=== PATIENT | male | born 1935 | race Caucasian/White ===

== ENCOUNTER 2025-01-30 19:23 | Emergency (ER) | payer OTHER, MEDICARE, MEDICAID, SELFPAY ==
--- NOTE | 2025-01-30 19:40 | PD.EDAMS ---
Altered Mental Status RME/HPI General Chief Complaint: Altered Mental Status Stated Complaint: AMS Time Seen by Provider: 01/30/25 19:34 Arrival date/time: 01/30/25 19:23 RME / HPI RME / HPI narrative: Dr. Andrews?s Main ED Evaluation: 89yo male with a history of severe dementia, anxiety, scabies BIB[facility] from [facility] presents to the ED for a chief complaint of altered mental status. Per EMS, SNF staff noted the patient to be more altered than normal , reporting the patient normally knows his name. EMS notes the patient to be shaky. Full ROS is unobtainable due to the patient's history of dementia. Of note, patient is a DNR. Related Data Allergies Allergy/AdvReac Type Severity Reaction Status Date / Time Penicillins Allergy Verified 01/30/25 20:11 Review of Systems Review of Systems ROS Unobtainable: unobtainable due to mental status ED Exam Narrative Physical exam: Generally patient is alert agitated elderly appearing male who is cachectic, head is normocephalic atraumatic, eyes pupils equal round and reactive to light, oropharynx is dry, heart regular rate and rhythm, lungs clear to auscultation equal bilaterally, abdomen is soft nondistended mild diffuse tenderness without rebound, skin shows excoriations to bilateral lower extremities, extremities show no edema, neurologic exam shows the patient to be minimally verbal and appears confused without focal motor deficit Course Course Course Narrative: CXR is ordered for determining the etiology of AMS. Quality Measures none Orders Category Date Time Status CT Screening NOW Care 01/30/25 19:44 Active EKG (ED ONLY) *Do not use* NOW Care 01/30/25 19:[address] abdomen pelvis w con Stat Exams 01/30/25 19:[address] head/brain wo con Stat Exams 01/30/25 19:44 Completed EKG (ED Only) Stat Exams 01/30/25 19:44 Draft XR chest 1V portable Stat Exams 01/30/25 19:44 Completed Ammonia Stat Lab 01/30/25 20:00 Completed BMP [Basic Metabolic Panel] Stat Lab 01/30/25 23:49 Completed Blood Culture (Lab) Stat Lab 01/30/25 20:00 Received CBC Stat Lab 01/30/25 20:00 Completed CMP [Comprehensive Metabolic Panel] Stat Lab 01/30/25 20:00 Completed Lactic Acid [Lactate (Lactic Acid)] Stat Lab 01/30/25 20:00 Completed Lactic Acid [Lactate (Lactic Acid)] Stat Lab 01/30/25 23:49 Results Lipase Stat Lab 01/30/25 20:00 Completed Magnesium Stat Lab 01/30/25 20:00 Completed TSH [Thyroid Stimulating Hormone] Stat Lab 01/30/25 20:00 Completed Troponin I Stat Lab 01/30/25 20:00 Completed UA [Urinalysis] Stat Lab 01/30/25 19:55 Completed Diazepam Inj [Valium Inj] Med 01/30/25 19:45 Discontinued 10 mg IVP X1 ONE Ringers Lactated 1000 ml [Lactated Ringers] 1,000 ml Med 01/30/25 21:03 Discontinued IV 999 mls/hr Ringers Lactated 1000 ml [Lactated Ringers] 1,000 ml Med 01/30/25 21:56 Discontinued IV 999 mls/hr Vital Signs Vital signs: Vital Signs Temperature 98.8 F 01/30/25 20:02 Pulse Rate 68 01/30/25 20:02 Respiratory Rate 19 01/30/25 20:02 Blood Pressure 105/71 01/30/25 20:02 Pulse Oximetry (%) 97 01/30/25 20:02 Oxygen Delivery Method Room Air 01/30/25 20:02 Altered Mental Status MDM Narrative MDM Narrative:: Scribe Attestation: 01/30/25 - Jessica Bennett am scribing for and in the presence of Dr. Andrews. Head CT was negative. CT scan done of the abdomen and pelvis with IV contrast showed no acute abnormality. By laboratory criteria the patient has hypernatremic dehydration. Patient was hydrated with a liter of normal saline. Original potassium was 5.8 and repeat after hydration it was 4.2. Original lactic acid was 4.6 and after hydration it was 2.2. Urine is not infected. Patient has a history of dementia as well as unspecified encephalopathy. I believe the confusion is to be a function of the dementia. He did receive Valium 10 mg IV which helped calm the patient. Patient is stable for discharge back to his [facility] facility. Cardiac workup was unremarkable. EKG did show normal sinus rhythm at rate of 67 with a right bundle branch block. No ectopy or ischemic change. Patient data External records reviewed:: [facility] previous records (Per chart review, patient has no previous ED visits or admissions to this facility.) and [facility] records Clinical information provided by:: EMS Social determinants that could affect healthcare access:: housing (SNF resident) Patient has the following chronic illnesses:: severe dementia, anxiety How is presenting disease/condition affected by chronic disease/condition?: exacerbated by Evaluation data The following diagnostics were reviewed and interpreted by me:: lab results, radiology exam(s) and EKG tracing(s) Lab and/or radiology exams considered but not ordered:: none Interpretation Summary: [facility] Report Signed Patient: LUI CASE. Record#: [id number] Birthdate: 1935 Age/Sex: 89 / M Location: [facility] Attending Dr: Ordering Physician: Paulo Andrews DO Date of Service: 01/30/25 Procedure(s): XR chest 1V portable Accession Number(s): [id number] cc: Leander Jj MD; Paulo Andrews DO~ EXAMINATION: AP chest single view TECHNIQUE: AP portable supine chest single view Date and time: January 30, 2025, 1955 hours INDICATIONS: Onset chest pain today FINDINGS: Reduced inspiratory effort Normal heart size 4 mm pulmonary nodule left upper lobe No lobar pneumonia or pulmonary edema IMPRESSION: Poor inspiratory effort chest x-ray In the absence of prior chest films, recommend 3-month follow-up PA chest to document stability of small pulmonary nodule left upper lobe Dictated By: Leander Jj MD Signed By: <Electronically signed by Leander Jj MD in > 01/30/252030 [facility] Report Signed Patient: LUI CASE. Record#: [id number] Birthdate: 1935 Age/Sex: 89 / M Location: [facility] Attending Dr: Ordering Physician: Paulo Andrwes DO Date of Service: 01/30/25 Procedure(s): CT head/brain wo con Accession Number(s): [id number] cc: Leander Jj MD; NO PRIMARY/FAMILY,PHYSICIAN; Paulo Andrews DO~ Examination: CT brain head without contrast. 2-D sagittal coronal reconstructions Date and time of exam: January 30, 2025, 2130 hours INDICATIONS: Altered mental status today CTDI: vol (mGy): 51.1 DLP: (mGycm): 1170 Technique: Multiple CT axial sections of the brain have been obtained, 5 mm slice thickness. Contrast has not been administered. 2-D sagittal, coronal reconstructions have been obtained Low dose protocols were performed. One or more of the following dose reduction techniques were used; automated exposure control, adjustment of the mA and/or KV according to patient size, use of iterative reconstruction technique. Findings: No significant ventricular enlargement. Intra-axial or extra-axial hemorrhage density is not seen. No mass effect or midline shift Basal cisterns are not remarkable. Fourth ventricle is midline. Cranial vault intact. Impression: Negative for acute hemorrhage, mass effect or midline shift Advise clinical correlation and follow-up accordingly Dictated By: Leander Jj MD Signed By: <Electronically signed by Leander Jj MD in [place]> 01/30/25 2315 [facility] Report Signed Patient: LUI CASE Record#: [id number] Birthdate: 1935 Age/Sex: 89 / M Location: [facility] Attending Dr: Ordering Physician: Paulo Andrews DO Date of Service: 01/30/25 Procedure(s): CT abdomen pelvis w con Accession Number(s): [id number] cc: Leander Jj MD; NO PRIMARY/FAMILY,PHYSICIAN; Paulo Andrews DO~ Examination: CT abdomen with intravenous contrast CT pelvis with intravenous contrast 2-D coronal reconstructions 2-D sagittal reconstructions Date and time of exam: January 30, 2025, 2132 hours INDICATIONS: Onset abdominal pain today. CTDI: vol (mGy) 11.31 DLP: (mGycm) 713 Technique: Multiple axial sections of the abdomen and pelvis have been obtained. 64 slice high-resolution scanner used. 3 mm axial sections have been obtained, post intravenous injection 30 cc [id number]-300 2-D sagittal, coronal reconstructions obtained. Low dose protocols were performed. One or more of the following dose reduction techniques were used; automated exposure control, adjustment of the mA and/or KV according to patient size, use of iterative reconstruction technique. Findings: Small liver cysts Suspicious for tiny gallstones Spleen is not enlarged No pancreatic or adrenal mass Moderate renal scar formation, left parapelvic cysts No renal or ureteral calculi, no hydronephrosis Aorta normal size No bowel obstruction Normal appendix No diverticulitis Urinary bladder contracted around a Dillard catheter Moderate prostatomegaly Severe osteopenia IMPRESSION: Recommend gallbladder sonography to exclude tiny gallstones Moderate renal scar formation, left parapelvic cyst, no hydronephrosis or ureteral calculi Normal appendix No bowel obstruction No diverticulitis Moderate prostatomegaly Dictated By: Leander Jj MD Signed By: <Electronically signed by Leander Jj MD in OV> 01/30/25 2314 Medications / Prescriptions Medications or Prescriptions considered but not ordered:: none Medication administrations:: Medication Administration History Discontinued Medications Diazepam (Diazepam Inj 5 Mg/Ml Vial 2 Ml) 10 mg IVP X1 ONE Stop: 01/30/25 19:46 Last Admin: 01/30/25 21:19 Dose: 10 mg Documented By: MAGDALENE Lactated Ringer's (Lactated Ringers) 1,000 mls @ 999 mls/hr IV .Q1H1M ONE Stop: 01/30/25 22:03 Last Infusion: 01/31/25 00:28 Dose: Infused Documented By: Admin: 01/30/25 22:36 Dose: 999 mls/hr Documented By: MAGDALENE Lactated Ringer's (Lactated Ringers) 1,000 mls @ 999 mls/hr IV .Q1H1M ONE Stop: 01/30/25 22:56 Last Infusion: 01/31/25 00:28 Dose: Infused Documented By: Admin: 01/30/25 22:38 Dose: 999 mls/hr Documented By: MAGDALENE see above Consultations Consultation(s) initiated? (list below): No Diagnosis Differential diagnosis altered mental status: other (See MDM) Most likely diagnosis given after review of the tests above:: see clinical impression below Admission Indicated Admission indicated?: not indicated Admission Request Was there a request for admission?: No Disposition Plan Disposition Plan: Discharge Discharge Attestation Discharge Attestation: The patient and all family members were given an opportunity to ask questions and understood the discharge instructions. Discharge instructions specifically effects, indications for sooner follow up or return to the emergency department, and the expected course of current diagnosis. Patient condition: Stable Discharge Plan Plan Patient Disposition: Xfer Skilled Nsg Fac (SNF) Prescriptions/Referrals Referrals: No Primary/Family,Physician [Primary Care Provider] - In 1 week Problem List Clinical Impression: Dehydration with hypernatremia, Dementia Patient/Caregiver Discharge Instructions Education Materials: Caring for End-Stage Dementia, Dehydration, Hypernatremia Dc Additional Instructions: Patient is stable for discharge back to [facility] facility. Encourage p.o. hydration. Print Language: Argentine Stand Alone Forms: Joanie Award Info., Patient Portal Info Letter
--- NOTE | 2025-01-30 19:44 | EKG_ITS ---
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
--- NOTE | 2025-01-30 19:44 | XR_ITS ---
Examination: CT brain head without contrast. 2-D sagittal coronal reconstructions Date and time of exam: January 30, 2025, 2131 hours INDICATIONS: Altered mental status today CTDI: vol (mGy): 51.1 DLP: (mGycm): 1170 Technique: Multiple CT axial sections of the brain have been obtained, 5 mm slice thickness. Contrast has not been administered. 2-D sagittal, coronal reconstructions have been obtained Low dose protocols were performed. One or more of the following dose reduction techniques were used; automated exposure control, adjustment of the mA and/or KV according to patient size, use of iterative reconstruction technique. Findings: No significant ventricular enlargement. Intra-axial or extra-axial hemorrhage density is not seen. No mass effect or midline shift Basal cisterns are not remarkable. Fourth ventricle is midline. Cranial vault intact. Impression: Negative for acute hemorrhage, mass effect or midline shift Advise clinical correlation and follow-up accordingly
--- NOTE | 2025-01-30 19:44 | XR_ITS ---
Examination: CT abdomen with intravenous contrast CT pelvis with intravenous contrast 2-D coronal reconstructions 2-D sagittal reconstructions Date and time of exam: January 30, 2025, 2133 hours INDICATIONS: Onset abdominal pain today. CTDI: vol (mGy) 11.31 DLP: (mGycm) 713 Technique: Multiple axial sections of the abdomen and pelvis have been obtained. 64 slice high-resolution scanner used. 3 mm axial sections have been obtained, post intravenous injection 30 cc Isovue-300 2-D sagittal, coronal reconstructions obtained. Low dose protocols were performed. One or more of the following dose reduction techniques were used; automated exposure control, adjustment of the mA and/or KV according to patient size, use of iterative reconstruction technique. Findings: Small liver cysts Suspicious for tiny gallstones Spleen is not enlarged No pancreatic or adrenal mass Moderate renal scar formation, left parapelvic cysts No renal or ureteral calculi, no hydronephrosis Aorta normal size No bowel obstruction Normal appendix No diverticulitis Urinary bladder contracted around a Dillard catheter Moderate prostatomegaly Severe osteopenia IMPRESSION: Recommend gallbladder sonography to exclude tiny gallstones Moderate renal scar formation, left parapelvic cyst, no hydronephrosis or ureteral calculi Normal appendix No bowel obstruction No diverticulitis Moderate prostatomegaly
--- NOTE | 2025-01-30 19:44 | XR_ITS ---
EXAMINATION: AP chest single view TECHNIQUE: AP portable supine chest single view Date and time: January 30, 2025, 195 hours INDICATIONS: Onset chest pain today FINDINGS: Reduced inspiratory effort Normal heart size 4 mm pulmonary nodule left upper lobe No lobar pneumonia or pulmonary edema IMPRESSION: Poor inspiratory effort chest x-ray In the absence of prior chest films, recommend 3-month follow-up PA chest to document stability of small pulmonary nodule left upper lobe
[2025-01-30 20:00] LABS: Collection Type, Urine Voided
[2025-01-30 20:02] VITALS: BP 105/71; PULSE 68; RESP 19; TEMP 37.1; O2SAT 97; BMI 19.0
[2025-01-30 20:04] LABS: Bilirubin,Urine Negative (Negative); Blood,Urine Negative (Negative); Clarity,Urine Clear (Clear/Hazy); Color,Urine Yellow (Lt Yel-Yel); Glucose, Urine Negative (Negative); Hyaline Casts,Urine < 1 /hpf (0-1); Ketones,Urine Negative (Negative); Leukocyte Esterase,Urine Negative (Negative); Nitrite,Urine Negative (Negative); PH,Urine 5.5 (5.0-7.0); Protein,Urine Trace (Neg - Trace); RBC,Urine 3 /hpf (0-3); Specific Gravity,Urine 1.030 (1.001-1.035); Squamous Epithelial Cell,Urine < 1 /hpf (0-5); Urobilinogen,Urine Negative mg/dL (0.0-1.0); WBC,Urine 1 /hpf (0-5)
[2025-01-30 20:25] LABS: Basophils # (Auto) 0.0 Thou/mm3 (0.0-0.2); Basophils % (Auto) 0 % (0-2.5); Eosinophils # (Auto) 0.0 Thou/mm3 (0.0-0.5); Eosinophils % (Auto) 0 % (0-10); Hematocrit 42.4 % (41.0-53.0); Hemoglobin 13.7 g/dL (13.5-16.0); Immature Granulocytes Auto 0.03 Thou/mm3 (0.00-0.00); Lymphocytes # (Auto) 2.8 Thou/mm3 (1.0-4.8); Lymphocytes % (Auto) 25 % (10-50); Mean Corpuscular HGB Conc 32.3 g/dl (31.0-37.0); Mean Corpuscular Hemoglobin 29.0 pg (25.0-35.0); Mean Corpuscular Volume 90 fL (80-100); Monocytes # (Auto) 0.3 Thou/mm3 (0.0-0.8); Monocytes % (Auto) 2 % (0-12); Neutrophils # (Auto) 8.1 Thou/mm3 (1.8-7.7); Neutrophils % (Auto) 72 % (37-80); Nucleated Red Blood Cell # 0.00 Thou/mm3 (0.00-0.00); Nucleated Red Blood Cell % 0 /100 WBC (0); Platelet Count 301 Thou/mm3 (140-440); RDW Standard Deviation 46.2 fL (35.1-43.9); Red Blood Count 4.73 Miln/mm3 (4.50-5.90); White Blood Count 11.2 Thou/mm3 (3.8-10.6)
[2025-01-30 20:29] LABS: Lactate (Lactic Acid) 4.6 mMol/L (0.4-2.0)
[2025-01-30 20:42] LABS: Ammonia 18 uMol/L (11-32)
[2025-01-30 21:06] LABS: Alanine Aminotransferase 11 U/L (10-49); Albumin, Serum 4.2 gm/dL (3.4-4.8); Albumin/Globulin Ratio 1.2 (1.2-2.2); Alkaline Phosphatase 108 U/L (46-116); Anion Gap 12 (7-16); Aspartate Amino Transferase 28 U/L (0-34); BUN/Creatinine Ratio 22 Ratio (12-20); Bilirubin,Total 0.4 mg/dL (0.3-1.2); Blood Urea Nitrogen 39 mg/dL (9-23); Calcium 9.5 mg/dL (8.3-10.6); Calcium (Corrected) 9.5 mg/dL (8.5-10.1); Carbon Dioxide 22.0 mMol/L (20.0-31.0); Chloride 116 mMol/L (98-107); Creatinine (Component) 1.8 mg/dL (0.6-1.3); Estimated Creatinine Clearance 26.0 mL/min (>60); Globulin 3.4 gm/dL (2.3-3.5); Glucose 113 mg/dL (74-106); Lipase 39 U/L (12-53); Magnesium 2.6 mg/dL (1.6-2.6); Osmolality,Calculated 308 (275-295); Potassium 5.8 mMol/L (3.4-5.1); Sodium 150 mMol/L (136-145); Thyroid Stimulating Hormone 0.74 uIU/mL (0.55-4.78); Total Protein 7.6 gm/dL (5.7-8.2); Troponin I < 0.002 ng/mL (0.0-0.045); eGFR 36 See Note
[2025-01-30] MEDS: DIAZEPAM INJ 5 MG/ML VIAL 2 ML 10 MG IVP (21:19)
[2025-01-30 22:00] VITALS: BP 123/73; PULSE 82; RESP 16; TEMP 37.1; O2SAT 99
[2025-01-30] MEDS: RINGERS LACTATED 1000 ML 1,000 ML 999 ML IV ×2 (22:36→22:38)
[2025-01-30 23:19] LABS: Reflex Lactate? Y
[2025-01-31] VITALS: BP 126/72; PULSE 82; RESP 17; O2SAT 99
[2025-01-31 00:30] LABS: Lactate (Lactic Acid) 2.2 mMol/L (0.4-2.0)
[2025-01-31 00:54] LABS: Anion Gap 11 (7-16); BUN/Creatinine Ratio 21 Ratio (12-20); Blood Urea Nitrogen 36 mg/dL (9-23); Calcium 8.7 mg/dL (8.3-10.6); Carbon Dioxide 23.3 mMol/L (20.0-31.0); Chloride 116 mMol/L (98-107); Creatinine (Component) 1.7 mg/dL (0.6-1.3); Estimated Creatinine Clearance 27.5 mL/min (>60); Glucose 101 mg/dL (74-106); Osmolality,Calculated 306 (275-295); Potassium 4.2 mMol/L (3.4-5.1); Sodium 150 mMol/L (136-145); eGFR 39 See Note
[2025-01-31 02:12] VITALS: BP 126/71; PULSE 72; RESP 17; TEMP 36.9; O2SAT 99
[2025-01-31 03:29] LABS: Reflex Lactate? Y
== END 2025-01-31 02:30 | disposition skilled nursing facility (03) ==
PROVIDERS: Emergency Provider Emergency Medicine
DX: E86.0 Dehydration (principal); E87.0 Hyperosmolality and hypernatremia; Z66 Do not resuscitate; F03.C0 Unspecified dementia, severe, without behavioral disturbance, psychotic disturbance, mood disturbance, and anxiety; N40.0 Benign prostatic hyperplasia without lower urinary tract symptoms
CPT/HCPCS: 36415; 51702; 70450; 71045; 74177; 80048; 80053; 81001; 82140; 83605; 83690; 83735; 84443; 84484; 85025; 87040; 93005; 96361; 96374; 99284; A4314; A4649; J3360; J7120; Q9967